=== PATIENT | female | born 1995 | race African-American/Black ===

== ENCOUNTER 2024-04-25 15:23 | Emergency (ER) | payer MEDICAID ==
[~2024-04-25] VITALS: Ht 170.2 cm; Wt 98.2 kg
[2024-04-25 15:26] VITALS: BP 100/62; PULSE 86; RESP 18; TEMP 98.2; O2SAT 99
[2024-04-25] MEDS ORDERED: CEPH-558 PO (15:58)
[2024-04-25] MEDS ORDERED: IBUP-1554 PO (15:58)
[2024-04-25] MEDS ORDERED: HYDR-4062 PO (15:58)
== END 2024-04-25 16:16 | disposition home or self-care (01) ==
LOC: EMS 15:23
DX: J02.8 Acute pharyngitis due to other specified organisms (principal); B97.89 Other viral agents as the cause of diseases classified elsewhere; K08.89 Other specified disorders of teeth and supporting structures
CPT/HCPCS: 99283; Z7502

== ENCOUNTER 2024-08-23 06:41 | Emergency (ER) | payer MEDICAID ==
[~2024-08-23] VITALS: Ht 170.2 cm; Wt 104.5 kg
[~2024-08-23 06:41] MED LIST: CEPH-558 PO; HYDR-4062 PO; IBUP-1554 PO
[2024-08-23] MEDS ORDERED: BIRTH CONTROL PO (06:57)
[2024-08-23] MEDS: ACETAMINOPHEN 500 MG TABLET PO ONE (07:16)
[2024-08-23] MEDS: IBUPROFEN 600 MG TABLET PO ONE (07:17)
[2024-08-23 07:20] LABS: COVID AG,FIA SOURCE NASAL SWAB
[2024-08-23 07:41] LABS: BASOPHILS % (AUTO) 0.3 % (0.0-2.0); EOSINOPHILS % (AUTO) 2.7 % (1.0-6.0); HEMATOCRIT 42.1 % (36-46); HEMOGLOBIN 13.9 g/dL (12.0-16.0); LYMPHOCYTES # (AUTO) 2.8 K/uL (1.0-4.8); LYMPHOCYTES % (AUTO) 30.4 % (22.0-44.0); MEAN CORPUSCULAR HEMOGLOBIN 29.5 pg (26.0-34.0); MEAN CORPUSCULAR VOLUME 90 fL (80-100); MONOCYTES # (AUTO) 0.8 K/uL (0.1-1.0); MONOCYTES % (AUTO) 8.2 % (2.0-9.0); NEUTROPHILS # (AUTO) 5.5 K/uL (1.8-7.7); NEUTROPHILS % (AUTO) 58.4 % (40.0-70.0); PLATELET COUNT (AUTO) 225 K/uL (150-450); RED CELL DISTRIBUTION WIDTH 13.7 % (11.5-14.5); WHITE BLOOD COUNT (AUTO) 9.3 K/uL (4.5-11.0)
[2024-08-23 07:46] LABS: RAPID GROUP A STREP NEGATIVE (NEGATIVE)
[2024-08-23 07:52] LABS: ANION GAP 7 mmol/L (8-16); CARBON DIOXIDE 23 mmol/L (22-29); CHLORIDE 103 mmol/L (98-107); CREATININE 0.72 mg/dL (0.60-1.30); GLOMERULAR FILTR. RATE CALC > 60 mL/min (>60); GLUCOSE,RANDOM 98 mg/dL (70-110); POTASSIUM 3.8 mmol/L (3.5-5.1); SODIUM SERUM 133 mmol/L (136-145); UREA NITROGEN, BLOOD 7 mg/dL (7-18)
[2024-08-23 07:53] LABS: INFLUENZA TYPE A NEGATIVE FOR TYPE A (NEGATIVE); INFLUENZA TYPE B NEGATIVE FOR TYPE B (NEGATIVE); SARS-COV2 (COVID) ANTIGEN,FIA Negative (Negative)
[2024-08-23] MEDS ORDERED: IBUP-1492 PO (07:57)
[2024-08-23] MEDS ORDERED: ACET-3385 PO (07:57)
[2024-08-23 07:58] LABS: ALBUMIN 3.2 g/dL (3.4-5.0); BILIRUBIN,DIRECT 0.1 mg/dL (0.00-0.20); BILIRUBIN,TOTAL 0.2 mg/dL (0.1-1.0)
[2024-08-23 08:03] VITALS: BP 93/54; PULSE 60; RESP 18; TEMP 98.6; O2SAT 98
== END 2024-08-23 08:30 | disposition home or self-care (01) ==
LOC: EMS 06:41
DX: J02.8 Acute pharyngitis due to other specified organisms (principal); B97.89 Other viral agents as the cause of diseases classified elsewhere; R19.7 Diarrhea, unspecified; Z20.822 Contact with and (suspected) exposure to COVID-19
CPT/HCPCS: 80048; 80076; 83690; 85025; 87430; 87804; 99283

== ENCOUNTER 2025-02-05 13:19 | Emergency (ER) | payer MEDICAID ==
[~2025-02-05] VITALS: Ht 170.2 cm; Wt 106.8 kg
[~2025-02-05 13:19] MED LIST changes: +ACET-3385 PO; +BIRTH CONTROL PO; -CEPH-558 PO; -HYDR-4062 PO; +IBUP-1492 PO; -IBUP-1554 PO
[2025-02-05 13:25] VITALS: BP 108/64; PULSE 124; RESP 18; TEMP 99; O2SAT 99
[2025-02-05] MEDS ORDERED: IBUP-1554 PO (14:50)
[2025-02-05] MEDS ORDERED: HYDR-4062 PO (14:50)
[2025-02-05] MEDS ORDERED: CEPH-558 PO (14:50)
[2025-02-05] MEDS: LIDOCAINE 2% VISCOUS 15 ML SOLUTION UDCUP PO ONE (14:51)
[2025-02-05] MEDS: HYDROCODONE/ACETAMINOPHEN 5-325 MG TABLET PO ONE (14:59)
[2025-02-05] MEDS: DEXAMETHASONE SOD PHOS 4 MG/ML VIAL IM ONE (14:59)
[2025-02-05] MEDS: IBUPROFEN 600 MG TABLET PO ONE (15:00)
== END 2025-02-05 15:14 | disposition home or self-care (01) ==
LOC: EMS 13:21
DX: J02.0 Streptococcal pharyngitis (principal); Z79.899 Other long term (current) drug therapy
CPT/HCPCS: 99284; 87430; 96372; J1100